=== PATIENT | female | born 1950 | race African-American/Black ===

== ENCOUNTER 2021-04-04 21:53 | Emergency (ER) | payer MEDICARE ==
[~2021-04-04] VITALS: Ht 157.5 cm; Wt 116.1 kg
[~2021-04-04 21:53] MED LIST: ACCUNEB0.63 MG/3 IH; ACETAMINOPHEN-1 EAC1; ACETAMINOPHEN-120 ML PO; ADVAIR 250-501 EACH; ATROVENT15 ML; AVELOX 400 MG400 MG PO; BENICAR40 MG; CLEOCIN HCL300 MG PO; DELSYM30 MG/5 ML; DOXYCYCLINE 10100 MG PO; GLUCOPHAGE500 MG; KEFLEX500 MG PO; MUCINEX600 MG; NORCO 5-325 TA1 EACH PO; PREDNISONE 20 M20 MG PO; PREDNISONE50 MG PO; PRILOSEC 20 MG20 MG; PROAIR HFA8.5 GM; PROAIR HFA8.5 GM IH; PROTONIX; SINGULAIR
[2021-04-05 02:57] LABS: ABSOLUTE NEUTROPHILS 6.2 thou/uL (1.4-8.2); BASOPHILS 0.5 % (0.0-2.0); EOSINOPHILS 1.5 % (0.0-3.0); HEMATOCRIT 31.1 % (37.0-47.0); HEMOGLOBIN 9.9 gm/dL (12.0-15.0); LYMPHOCYTES 20.5 % (24.0-44.0); MCH 26.3 pg (26.0-34.0); MCHC 31.9 g/dL (28.0-37.0); MCV 82.5 fL (80.0-100.0); MONOCYTES 5.2 % (1.0-8.0); PLATELET COUNT 242 thou/uL (150-400); POLYS 72.3 % (36.0-66.0); RBC 3.78 mil/uL (4.20-5.00); RDW 13.4 % (10.5-14.5); WBC 8.6 thou/uL (4.0-11.0)
[2021-04-05 03:02] LABS: CALCIUM 9.6 mg/dL (8.5-10.1); CREATININE 0.8 mg/dL (0.6-1.0); POTASSIUM 4.4 mmol/L (3.5-5.1)
[2021-04-05] MEDS ORDERED: APAP W/CODEINE1 TA2 PO (05:08)
[2021-04-05] MEDS ORDERED: CEPHALEXIN500 MG PO (05:08)
[2021-04-05 06:10] VITALS: BP 134/63
== END 2021-04-05 06:35 | disposition home or self-care (01) ==
LOC: ER 21:53
PROVIDERS: Emergency Medicine
DX: L03.317 Cellulitis of buttock (principal); K08.89 Other specified disorders of teeth and supporting structures; J45.909 Unspecified asthma, uncomplicated; E11.9 Type 2 diabetes mellitus without complications; I10 Essential (primary) hypertension; Z98.890 Other specified postprocedural states; Z79.51 Long term (current) use of inhaled steroids; Z79.84 Long term (current) use of oral hypoglycemic drugs; Z79.899 Other long term (current) drug therapy; Z88.0 Allergy status to penicillin; Z88.2 Allergy status to sulfonamides